=== PATIENT | female | born 1950 | race Caucasian/White ===

== ENCOUNTER → 2020-09-30 | Outpatient (CLI) | payer BC, MEDICARE ==
[~2020-09-30] MED LIST: ACET-78 PO; ACHD5005 PO; AMLO-250 PO; ATEN50TA PO; BACL10TA PO; BACL20TA PO; BUDE0.5A INH; CALC-913 PO; CEFE2FRO IV; CHOL10007 PO; DIAZ5TAB PO; DIAZ5TAB49 PO; DICL50TA6 PO; FENT1PAT11 TP; FLUT16SP22 NS; FURO20TA4 PO; GABA-726 PO; GBPN600T PO; GLUC-144 PO; IPRA3AMP31 INH; LISI10TA2 PO; LISI20TA26 PO; LORA10TA7 PO; METR-145 PO; MILN50TA PO; MORP5VIA IV; MULT-35 PO; OMG1KC PO; OXYC-191 PO; OXYC-464 PO; OXYC-556 PO; OXYC1TAB12 PO; OXYC1TAB95 PO; POLY17PO54 PO; POLY17PO6 PO; PSEU30TA37 PO; SENN-20 PO; SIMV40TA25 PO; SUDAFED 30 MG PO; TRIA1TAB PO; TRIA1TAB5 PO; WALK1EAC23 MC; [UNRECOGNIZED DRUG - OTHER]
== END ==
LOC: RAD 13:57
PROVIDERS: ATTEND Otolaryngology Otolaryngology/Facial Plastic Surgery
DX: K11.8 Other diseases of salivary glands (principal)